=== PATIENT | female | born 1980 | race Caucasian/White ===

== ENCOUNTER 2021-03-03 11:27 | Emergency (ER) | payer OTHER ==
[2021-03-03 11:39] VITALS: BP 150/81; PULSE 77; TEMP 98.3; BMI 48.6
[2021-03-03] MEDS ORDERED: predniSONE 20 MG TABLET (UD) PO SCH (12:33)
[2021-03-03] MEDS ORDERED: predniSONE 20 MG TABLET (UD) ONE (12:33)
[2021-03-04] MEDS ORDERED: predniSONE 20 MG TABLET (UD) PO SCH (10:00)
== END 2021-03-03 13:15 | disposition home or self-care (01) ==
LOC: JER 11:27
DX: G51.0 Bell's palsy (principal)
CPT/HCPCS: 36415; 86618; 99283-25